=== PATIENT | female | born 1965 | race Caucasian/White ===

== ENCOUNTER 2022-12-12 19:37 | Inpatient (IN) | payer OTHER ==
[2022-12-12 20:45] VITALS: BMI 30.2
[2022-12-12] MEDS ORDERED: P-EPHED 60MG/TRIPROLIDI 2.5MG TABLET PO PRN (23:45)
[2022-12-12] MEDS ORDERED: NICOTINE 10 MG CARTRIDGE (INHALER) IH PRN (23:45)
[2022-12-12] MEDS ORDERED: NALOXONE HCL 0.4 MG/ML VIAL IM PRN (23:45)
[2022-12-12] MEDS ORDERED: BENZONATATE 200 MG CAPSULE PO PRN (23:45)
[2022-12-12] MEDS ORDERED: BENZOCAINE/MENTHOL (CHLORASEPTIC ) LOZENGE MM PRN (23:45)
[2022-12-12] MEDS ORDERED: NALOXONE HCL (KLOXXADO) 8 MG SPRAY NS PRN (23:45)
[2022-12-12] MEDS ORDERED: guaiFENesin 600 MG TABLET.ER (FP) PO PRN (23:45)
[2022-12-12] MEDS ORDERED: POLYETHYLENE GLYCOL (HEALTHYLAX) 3350 17 GM PACKET PO PRN (23:45)
[2022-12-12] MEDS ORDERED: BISMUTH SUBSALICYLATE 524 MG/30 ML PO PRN (23:45)
[2022-12-12] MEDS ORDERED: MAGNESIUM HYDROX 2400MG/30ML ORAL SUSPENSION 30 ML CUP PO PRN (23:45)
[2022-12-12] MEDS ORDERED: MAG HYDROX/AL HYDROX/SIMETH 30 ML UNIT-DOSE CUP PO PRN (23:45)
[2022-12-12] MEDS ORDERED: LOPERAMIDE HCL 2 MG CAPSULE PO PRN (23:45)
[2022-12-12] MEDS ORDERED: DICYCLOMINE HCL 10 MG CAPSULE PO PRN (23:45)
[2022-12-12] MEDS ORDERED: ONDANSETRON *ODT* 4 MG TABLET SL PRN (23:45)
[2022-12-12] MEDS ORDERED: cloNIDine HCL 0.1 MG TABLET PO PRN (23:49)
[2022-12-12] MEDS ORDERED: methaDONE HCL 10 MG TABLET (FOR DETOX USE ONLY) PO ONE (23:49)
[2022-12-13] MEDS: LIDOCAINE PATCH REMOVAL MC SCH ×2 (01:25→22:37)
[2022-12-13] MEDS: hydrOXYzine PAMOATE 25 MG CAPSULE (FP) PO PRN ×2 (01:59→22:39)
[2022-12-13] MEDS: IBUPROFEN 400 MG TABLET (FP) PO PRN (01:59)
[2022-12-13 10:13] LABS: HEMATOCRIT 34.4 % (32.4-45.2); HEMOGLOBIN 12.1 GM/dL (10.7-15.3); MCH 32.4 pg (25.7-33.7); MCHC 35.3 g/dl (32.0-36.0); MEAN CELL VOLUME 91.7 fl (80-96); PLATELET COUNT 273 10^3/uL (134-434); RBC 3.75 M/mm3 (3.60-5.2); RDW 14.4 % (11.6-15.6); WHITE BLOOD COUNT 5.4 K/mm3 (4.0-10.0)
[2022-12-13 10:21] LABS: ALBUMIN 3.8 g/dl (3.4-5.0); BLOOD UREA NITROGEN 19.6 mg/dL (7-18); CALCIUM 9.1 mg/dL (8.5-10.1)
[2022-12-13 10:24] LABS: CREATININE 0.8 mg/dL (0.55-1.3)
[2022-12-13] MEDS: PRENATAL VITAMINS W/ FOLIC ACID TABLET (FP) PO SCH (10:25)
[2022-12-13 10:26] LABS: BILIRUBIN,TOTAL 0.7 mg/dL (0.2-1); TOT PROT 6.9 g/dl (6.4-8.2)
[2022-12-13] MEDS: METHOCARBAMOL 500 MG TABLET PO PRN ×2 (10:26→20:14)
[2022-12-13] MEDS: LIDOCAINE 5% TOPICAL PATCH TP SCH (10:26)
[2022-12-13] MEDS: NICOTINE POLACRILEX 2 MG GUM BUC PRN (20:11)
[2022-12-13] MEDS: IBUPROFEN 600 MG TABLET (FP) PO PRN (20:14)
[2022-12-13] MEDS: MELATONIN 5 MG TABLETS PO SCH (22:37)
[2022-12-13] MEDS: THIAMINE HCL 100 MG TABLET (FP) PO SCH (22:37)
[2022-12-13] MEDS: ACETAMINOPHEN 325 MG TABLET (FP) PO PRN (22:38)
[2022-12-14] MEDS ORDERED: methaDONE HCL 10 MG TABLET (FOR DETOX USE ONLY) PO ONE (10:00)
[2022-12-14] MEDS: METHOCARBAMOL 500 MG TABLET PO PRN ×2 (10:01→17:42)
[2022-12-14] MEDS: LIDOCAINE 5% TOPICAL PATCH TP SCH (10:01)
[2022-12-14] MEDS: PRENATAL VITAMINS W/ FOLIC ACID TABLET (FP) PO SCH (10:01)
[2022-12-14] MEDS ORDERED: POTASSIUM CHLORIDE ORAL LIQUID 20 MEQ/15 ML PO ONE (12:00)
[2022-12-14] MEDS: THIAMINE HCL 100 MG TABLET (FP) PO SCH (22:26)
[2022-12-14] MEDS: hydrOXYzine PAMOATE 25 MG CAPSULE (FP) PO PRN (22:26)
[2022-12-14] MEDS: MELATONIN 5 MG TABLETS PO SCH (22:26)
[2022-12-14] MEDS: LIDOCAINE PATCH REMOVAL MC SCH (22:29)
[2022-12-15] MEDS: IBUPROFEN 400 MG TABLET (FP) PO PRN (00:46)
[2022-12-15] MEDS: METHOCARBAMOL 500 MG TABLET PO PRN ×3 (00:46→18:35)
[2022-12-15] MEDS: LIDOCAINE 5% TOPICAL PATCH TP SCH (09:52)
[2022-12-15] MEDS: PRENATAL VITAMINS W/ FOLIC ACID TABLET (FP) PO SCH (09:54)
[2022-12-15] MEDS: hydrOXYzine PAMOATE 25 MG CAPSULE (FP) PO PRN ×2 (13:53→22:07)
[2022-12-15] MEDS: IBUPROFEN 600 MG TABLET (FP) PO PRN (13:53)
[2022-12-15] MEDS: MELATONIN 5 MG TABLETS PO SCH (22:05)
[2022-12-15] MEDS: THIAMINE HCL 100 MG TABLET (FP) PO SCH (22:06)
[2022-12-15] MEDS: LIDOCAINE PATCH REMOVAL MC SCH (22:06)
[2022-12-15] MEDS: NAPROXEN 500 MG TABLET PO SCH (22:06)
[2022-12-16] MEDS: METHOCARBAMOL 500 MG TABLET PO PRN ×3 (05:31→22:19)
[2022-12-16] MEDS: ACETAMINOPHEN 325 MG TABLET (FP) PO PRN ×2 (05:31→17:52)
[2022-12-16] MEDS ORDERED: methaDONE HCL 10 MG TABLET (FOR DETOX USE ONLY) PO ONE (10:00)
[2022-12-16] MEDS: NAPROXEN 500 MG TABLET PO SCH ×2 (10:02→22:17)
[2022-12-16] MEDS: LIDOCAINE 5% TOPICAL PATCH TP SCH (10:02)
[2022-12-16] MEDS: hydrOXYzine PAMOATE 25 MG CAPSULE (FP) PO PRN ×2 (10:02→17:54)
[2022-12-16] MEDS: PRENATAL VITAMINS W/ FOLIC ACID TABLET (FP) PO SCH (10:04)
[2022-12-16] MEDS: NICOTINE POLACRILEX 2 MG GUM BUC PRN (19:14)
[2022-12-16] MEDS: THIAMINE HCL 100 MG TABLET (FP) PO SCH (22:17)
[2022-12-16] MEDS: MELATONIN 5 MG TABLETS PO SCH (22:17)
[2022-12-16] MEDS: LIDOCAINE PATCH REMOVAL MC SCH (22:24)
[2022-12-17] MEDS: ACETAMINOPHEN 325 MG TABLET (FP) PO PRN (05:27)
[2022-12-17] MEDS: METHOCARBAMOL 500 MG TABLET PO PRN (05:27)
[2022-12-17] MEDS: LIDOCAINE 5% TOPICAL PATCH TP SCH (09:31)
[2022-12-17] MEDS: NAPROXEN 500 MG TABLET PO SCH (09:31)
[2022-12-17] MEDS: PRENATAL VITAMINS W/ FOLIC ACID TABLET (FP) PO SCH (09:31)
[2022-12-17 09:55] VITALS: BP 149/75; PULSE 77; RESP 18; TEMP 97.7
== END 2022-12-17 11:35 | disposition home or self-care (01) | DRG 773 ==
LOC: YASAS 19:37 → Y3N 12-13 01:23
PROVIDERS: ADMIT Allergy & Immunology; ATTEND Surgery
PROC: HZ2ZZZZ Detoxification Services for Substance Abuse Treatment (ICD-10-PCS; principal; 2022-12-13)
DX: F11.23 Opioid dependence with withdrawal (principal); F17.210 Nicotine dependence, cigarettes, uncomplicated; E03.9 Hypothyroidism, unspecified; E87.6 Hypokalemia; I10 Essential (primary) hypertension; J44.9 Chronic obstructive pulmonary disease, unspecified; M54.50 Low back pain, unspecified; G89.29 Other chronic pain
CPT/HCPCS: 36415; 80053; 84132; 85027; 86780; C9803-CS; U0003; U0005